=== PATIENT | female | born 1960 | race Caucasian/White ===

== ENCOUNTER 2021-04-08 07:07 | Day surgery (SDC) | payer OTHER ==
[2021-04-08] MEDS ORDERED: MIDAZOLAM 5 MG/5 ML VIAL ONE (09:01)
[2021-04-08] MEDS ORDERED: fentaNYL citrate 0.05 MG/ML VIAL ONE (09:01)
[2021-04-08] MEDS ORDERED: diphenhydrAMINE 50 MG/ML VIAL ONE (09:01)
[2021-04-08] MEDS ORDERED: LIDOCAINE 2% 100 MG/5 ML UJET TP ONE (09:01)
[2021-04-08] MEDS ORDERED: FENTANYL C 0.075 MG/HR PATCH TD SCH (09:30)
[2021-04-08] MEDS ORDERED: MIDAZOLAM 2 MG/2 ML VIAL IVP ONE ×2 (09:30→13:30)
[2021-04-08] MEDS ORDERED: fentaNYL citrate 0.05 MG/ML VIAL IVP ONE (13:30)
== END 2021-04-08 10:37 | disposition home or self-care (01) ==
LOC: MDS 07:07 → MMU 07:08 → MDS 10:37
PROVIDERS: ATTEND Internal Medicine Gastroenterology
DX: K62.5 Hemorrhage of anus and rectum (principal); K64.9 Unspecified hemorrhoids; L91.8 Other hypertrophic disorders of the skin; I10 Essential (primary) hypertension; F17.210 Nicotine dependence, cigarettes, uncomplicated; Z79.899 Other long term (current) drug therapy
CPT/HCPCS: 45378; J2250; J3010; J1200